=== PATIENT | female | born 1990 | race Caucasian/White ===

== ENCOUNTER 2018-01-10 16:49 | Emergency (ER) | payer SELFPAY ==
--- NOTE | 2018-01-10 17:30 | ER ---
Nurse's Notes [facility] Name: Jessica Hernandez Age: 27 yrs Sex: Female : 1990 Arrival Date: 01/10/2018 Time: 16:52 Bed 11 Private MD: Diagnosis: Acute sinusitis Presentation: 01/10 16:58 Presenting complaint: Patient states: she has had sore throat, low-grade fever (TMAX la1 100.2), cough and congestion for a week. Transition of care: patient was not received from another setting of care. Onset of symptoms was January 03, 2018. Care prior to arrival: None. 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 - Social history:: Smoking status: Patient uses tobacco products, smokes one-half pack cigarettes per day. Screenin:28 Abuse screen: Denies threats or abuse. Nutritional screening: No deficits noted. la1 Tuberculosis screening: No symptoms or risk factors identified. Fall Risk None identified. Assessment: 17:27 General: Appears in no apparent distress. Behavior is calm, cooperative. Pain: la1 Complains of pain in throat. Cardiovascular: Capillary refill < 3 seconds Patient's skin is warm and dry. Respiratory: Airway is patent Respiratory effort is even, unlabored, Respiratory pattern is regular, symmetrical, Breath sounds are clear bilaterally. GI: No signs and/or symptoms were reported involving the gastrointestinal system. : No signs and/or symptoms were reported regarding the genitourinary system. EENT: Throat is reddened. Vital Signs: 17:00 BP 136 / 78; Pulse 104; Resp 18; Temp 98.2; Pulse Ox 100% ; Weight 42.18 kg; Height 4 la1 ft. 7 in. (139.70 cm); Pain 7/10; 17:00 Body Mass Index 21.62 (42.18 kg, 139.70 cm) la1 ED Course: 16:52 Patient arrived in ED. tw3 16:54 Carrie Martinez FNP-C is [facility]. kb 16:54 Tyrone Bains MD is Attending Physician. kb 16:59 Triage completed. la1 17:00 Arm band placed on left wrist. la1 17:27 Nitish Carrera, RN is Primary Nurse. la1 17:28 Call light in reach. Side rails up X 1. la1 17:28 No provider procedures requiring assistance completed. Patient did not have IV access la1 during this emergency room visit. Administered Medications: No medications were administered Outcome: 17:29 Discharge ordered by MD. kb 17:38 Discharged to home ambulatory. la1 17:38 Condition: stable 17:38 Discharge instructions given to patient, Instructed on discharge instructions, follow up and referral plans. medication usage, Demonstrated understanding of instructions, follow-up care. 17:38 Patient left the ED. la1 Signatures: Carrie Martinez FNP-C FNP-Nitish Ness RN RN la1 Lily Montemayor tw3
--- NOTE | 2018-01-10 17:30 | EDPHYS ---
Physician Documentation [facility] Name: Jessica Hernandez Age: 27 yrs Sex: Female : 1990 Arrival Date: 01/10/2018 Time: 16:52 Bed 11 Private MD: ED Physician Tyrone Bains HPI: 01/10 17:06 This 27 yrs old Female presents to ER via Ambulatory with complaints of kb Fever, Sore Throat. 17:06 The patient or guardian reports cough, that is intermittent, described as mild, with no kb sputum, flu symptoms, low-grade fever, myalgias. Onset: The symptoms/episode began/occurred 1 week(s) ago. Severity of symptoms: At their worst the symptoms were moderate, in the emergency department the symptoms are unchanged. Modifying factors: The symptoms are alleviated by nothing, the symptoms are aggravated by nothing. Associated signs and symptoms: Pertinent positives: fever, sore throat, Pertinent negatives: chest pain, diarrhea, ear ache, nausea, rhinorrhea, vomiting. The patient has not experienced similar symptoms in the past. The patient has not recently seen a physician. Pt c/o sore throat, cough, congestion and low grade fever that started a week ago. . 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 - Social history:: Smoking status: Patient uses tobacco products, smokes one-half pack cigarettes per day. ROS: 17:06 Cardiovascular: Negative for chest pain, palpitations, and edema, Abdomen/GI: Negative kb for abdominal pain, nausea, vomiting, diarrhea, and constipation, Back: Negative for injury and pain, : Negative for injury, bleeding, discharge, and swelling, MS/Extremity: Negative for injury and deformity, Skin: Negative for injury, rash, and discoloration, Neuro: Negative for headache, weakness, numbness, tingling, and seizure. 17:06 Constitutional: Positive for fever, malaise, Negative for body aches, chills, fatigue, poor PO intake, weight loss. 17:06 ENT: Positive for rhinorrhea, sore throat. 17:06 Respiratory: Positive for cough, with no reported sputum, Negative for dyspnea on exertion, hemoptysis, orthopnea, pleurisy, shortness of breath, sputum production, wheezing. Exam: 17:06 Constitutional: This is a well developed, well nourished patient who is awake, alert, kb and in no acute distress. Head/Face: Normocephalic, atraumatic. Neck: Trachea midline, no thyromegaly or masses palpated, and no cervical lymphadenopathy. Supple, full range of motion without nuchal rigidity, or vertebral point tenderness. No Meningismus. Chest/axilla: Normal chest wall appearance and motion. Nontender with no deformity. No lesions are appreciated. Cardiovascular: Regular rate and rhythm with a normal S1 and S2. No gallops, murmurs, or rubs. Normal PMI, no JVD. No pulse deficits. Respiratory: Lungs have equal breath sounds bilaterally, clear to auscultation and percussion. No rales, rhonchi or wheezes noted. No increased work of breathing, no retractions or nasal flaring. Abdomen/GI: Soft, non-tender, with normal bowel sounds. No distension or tympany. No guarding or rebound. No evidence of tenderness throughout. Skin: Warm, dry with normal turgor. Normal color with no rashes, no lesions, and no evidence of cellulitis. MS/ Extremity: Pulses equal, no cyanosis. Neurovascular intact. Full, normal range of motion. Neuro: Awake and alert, GCS 15, oriented to person, place, time, and situation. Cranial nerves II-XII grossly intact. Motor strength 5/5 in all extremities. Sensory grossly intact. Cerebellar exam normal. Normal gait. 17:06 ENT: External ear(s): are unremarkable, Ear canal(s): are normal, TM's: fluid levels, bilaterally, Nose: is normal, Mouth: is normal, Posterior pharynx: Airway: normal, no evidence of obstruction, Uvula: normal, midline, swelling, is not appreciated, erythema, that is mild, that is moderate. Vital Signs: 17:00 BP 136 / 78; Pulse 104; Resp 18; Temp 98.2; Pulse Ox 100% ; Weight 42.18 kg; Height 4 la1 ft. 7 in. (139.70 cm); Pain 04/08; 17:00 Body Mass Index 21.62 (42.18 kg, 139.70 cm) la1 MDM: 17:05 Patient medically screened. kb 17:10 Data reviewed: vital signs, nurses notes. Data interpreted: Pulse oximetry: on room air kb is 100 %. Interpretation: normal. 17:17 Counseling: I had a detailed discussion with the patient and/or guardian regarding: the kb historical points, exam findings, and any diagnostic results supporting the discharge/admit diagnosis, lab results, the need for outpatient follow up, a family practitioner, to return to the emergency department if symptoms worsen or persist or if there are any questions or concerns that arise at home. 17:36 ED course: I explained OTC medications to use for sinusitis with pt including an kb antihistamine with decongestant and flonase to decreased inflammation and reduce congestion. Educated that this will help the fluid in the ears as well. Also educated on smoking cessation to help symptoms. Verbal understanding received. . 01/10 17:02 Order name: Flu; Complete Time: 17:25 la1 01/10 17:02 Order name: Strep; Complete Time: 17:25 la1 01/10 17:23 Order name: Throat Culture EDMS Administered Medications: No medications were administered Disposition: 01/10/18 17:29 Discharged to Home. Impression: Acute sinusitis. - Condition is Stable. - Discharge Instructions: Sinusitis, [id number]. - Medication Reconciliation Form, Thank You Letter, Antibiotic Education, Prescription Opioid Use, Work release form form. - Follow up: Emergency Department; When: As needed; Reason: Worsening of condition. Follow up: Private Physician; When: 2 - 3 days; Reason: Recheck today's complaints, Continuance of care, Re-evaluation by your physician. - Notes: Use Flonase and a 24 hour antihistamine with decongestant (Zyrtec D, Celeste D, or Claritin D) as directed. Addendum: 01/13/2018 07:46 Co-signature as Attending Physician, Tyrone Bains MD I agree with the assessment and w a plan of care. Signatures: Dispatcher [employer] EDMS Carrie Martinez, [facility] [employer]-Nitish Ness RN RN la1 Tyrone Bains MD MD wa
== END 2018-01-10 17:38 | disposition home or self-care (01) ==
LOC: ER 16:49
DX: J01.90 Acute sinusitis, unspecified (principal); Z91.040 Latex allergy status
CPT/HCPCS: 87070; 87081; 87804; 99281

== ENCOUNTER 2019-08-08 16:39 | Emergency (ER) | payer SELFPAY ==
[2019-08-08] MEDS ORDERED: ONDANSETRON 4 MG/2 ML VIAL ONE (17:23)
[2019-08-08] MEDS ORDERED: MORPHINE 4 MG/ML SYR ONE ×2 (17:23→21:35)
[2019-08-08] MEDS ORDERED: NA CHLORIDE 0.9% 1,000 ML ONE (17:23)
[2019-08-08 17:30] LABS: Absolute Lymphocytes (CBC) 1.5 K/uL (0.7-4.9); Basophils % 0.2 % (0-1.3); Hematocrit 42.8 % (36.0-45.0); Lymphocytes % 21.2 % (15.3-44.8); MPV 9.5 fL (7.6-11.3); RBC Red Blood Cell Count 4.55 M/uL (3.86-4.86)
[2019-08-08 17:47] LABS: ALT/SGPT 13 U/L (12-78); AST/SGOT 16 U/L (15-37); Albumin 4.4 g/dL (3.4-5.0); Alkaline Phosphatase 76 U/L (45-117); BUN Blood Urea Nitrogen 8 mg/dL (7-18); Bicarbonate 25 mmol/L (21-32); Bilirubin Direct 0.2 mg/dL (0-0.2); Bilirubin Total 0.9 mg/dL (0.2-1.0); Glucose Level 88 mg/dL (74-106); Lipase 130 U/L (73-393); Potassium 3.7 mmol/L (3.5-5.1); Protein, Total 8.3 g/dL (6.4-8.2); Sodium Level 140 mmol/L (136-145)
--- NOTE | 2019-08-08 18:23 | RAD REPORT ---
EXAM DESCRIPTION: CT - Abdomen Pelvis W Contrast - 08/08/2019 6:13 pm CLINICAL HISTORY: ABD PAIN, vaginal bleeding, prior appendectomy COMPARISON: None. TECHNIQUE: Biphasic, helical CT imaging of the abdomen and pelvis was performed following 100 ml non -ionic IV contrast. No oral contrast given. All CT scans are performed using dose optimization technique as appropriate and may include automated exposure control or mA/KV adjustment according to patient size. FINDINGS: No suspicious findings in the lung bases. The liver, spleen, and pancreas show no suspicious findings. Gallbladder and biliary tree are also wi thout suspicious finding. Symmetric renal function is seen with no hydronephrosis or suspicious renal mass. No pyelonephritis o r acute parenchymal process. No bladder abnormalities. No adrenal abnormalities. No dilated bowel loops or bowel wall thickening. No free air, free fluid or inflammatory stranding. No hernia, mass or bulky lymphadenopathy. No uterine abnormality seen. Small follicles are seen in the right ovary. Normal size left ovary is s een. Patient appears to have a dilated left fallopian tube. No wall thickening or edema. No cyst rupt ure or hemorrhage. No suspicious bony findings. IMPRESSION: Suspected left-sided hydrosalpinx without pyosalpinx findings. No suspicious ovarian fin ding. No other significant or suspicious finding.
[2019-08-08] MEDS ORDERED: CEFTRIAXONE/SWI 1gm 1 GM/10 ML SYR ONE (20:18)
[2019-08-08 20:29] LABS: Urine Blood 2+ (NEG); Urine Glucose NEGATIVE (NEG); Urine Protein NEGATIVE (NEG)
[2019-08-08] MEDS ORDERED: METRONIDAZOLE 500mg IVPB 500 MG/100 ML BAG IV ONE (21:35)
[2019-08-08] MEDS ORDERED: DOXYCYCLINE 100 MG CAP PO ONE (21:35)
--- NOTE | 2019-08-08 21:37 | EDPHYS ---
Physician Documentation [facility] Name: Jessica Hernandez Age: 29 yrs Sex: Female : 1990 Arrival Date: 08/08/2019 Time: 16:42 Bed 20 Private MD: ED Physician Sathya Donovan HPI: 08/08 17:19 This 29 yrs old Female presents to ER via Ambulatory with complaints of pm1 Abdominal Pain. 17:19 The patient presents with abdominal pain that is diffuse. Onset: The symptoms/episode pm1 began/occurred 3 month(s) ago, and became worse. The symptoms do not radiate. Associated signs and symptoms: Pertinent positives: nausea, Pertinent negatives: chest pain, diarrhea, dysuria, fever, shortness of breath, vomiting. The symptoms are described as achy. Modifying factors: The symptoms are alleviated by nothing, the symptoms are aggravated by nothing. Severity of pain: in the emergency department the pain is actually worse. yesterday had u/s of gallbladder and pelvis. Patient saw PCP and had negative STD screen 2.5 weeks ago. Patient reports abnormal uterine bleeding for the past 3 months. Denies vaginal discharge or dysuria. 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 - Social history:: Smoking status: Patient uses tobacco products, smokes one pack cigarettes per day. - Ebola Screening: : No symptoms or risks identified at this time. ROS: 17:19 Constitutional: Negative for fever, chills, and weight loss, Eyes: Negative for injury, pm1 pain, redness, and discharge, ENT: Negative for injury, pain, and discharge, Neck: Negative for injury, pain, and swelling, Cardiovascular: Negative for chest pain, palpitations, and edema, Respiratory: Negative for shortness of breath, cough, wheezing, and pleuritic chest pain. 17:19 Back: Negative for injury and pain. 17:19 MS/Extremity: Negative for injury and deformity, Skin: Negative for injury, rash, and discoloration, Neuro: Negative for headache, weakness, numbness, tingling, and seizure. 17:19 Abdomen/GI: Positive for abdominal pain, nausea, Negative for vomiting, diarrhea, constipation. 17:19 : Positive for vaginal bleeding, Negative for burning with urination, vaginal discharge, vaginal itching. Exam: 17:19 Constitutional: This is a well developed, well nourished patient who is awake, alert, pm1 and in no acute distress. Head/Face: Normocephalic, atraumatic. Neck: Trachea midline, no thyromegaly or masses palpated, and no cervical lymphadenopathy. Supple, full range of motion without nuchal rigidity, or vertebral point tenderness. No Meningismus. Chest/axilla: Normal chest wall appearance and motion. Nontender with no deformity. No lesions are appreciated. Cardiovascular: Regular rate and rhythm with a normal S1 and S2. No gallops, murmurs, or rubs. Normal PMI, no JVD. No pulse deficits. Respiratory: Lungs have equal breath sounds bilaterally, clear to auscultation and percussion. No rales, rhonchi or wheezes noted. No increased work of breathing, no retractions or nasal flaring. 17:19 Back: No spinal tenderness. No costovertebral tenderness. Full range of motion. Skin: Warm, dry with normal turgor. Normal color with no rashes, no lesions, and no evidence of cellulitis. 17:19 MS/ Extremity: Pulses equal, no cyanosis. Neurovascular intact. Full, normal range of motion. 17:19 Abdomen/GI: Inspection: abdomen appears normal, Bowel sounds: normal, Palpation: soft, mild abdominal tenderness, in the right lower quadrant and left lower quadrant, mass, is not appreciated, rebound tenderness, is not appreciated. 17:19 Neuro: Orientation: is normal, Motor: is normal, moves all fours. 20:54 : Pelvic Exam: External exam: is normal, Speculum exam: no bleeding is noted, no pm1 cervicitis, bimanual exam reveals no cervical motion tenderness, no adnexal tenderness on right, left adnexal tenderness, discharge, yellow, Felicia GATES. Sexual behavior: the patient is sexually active, 2 months ago. Vital Signs: 16:47 BP 134 / 70; Pulse 76; Resp 16; Temp 98.4; Pulse Ox 100% on R/A; Weight 42.18 kg; la1 Height 4 ft. 7 in. (139.70 cm); 17:54 BP 125 / 66; Pulse 93; Resp 18; Pulse Ox 99% on R/A; Pain 2/10; em 19:30 BP 116 / 66; Pulse 70; Resp 16; Pulse Ox 100% on R/A; Pain 8/10; lp1 20:30 BP 109 / 66; Pulse 70; Resp 16; Pulse Ox 100% on R/A; lp1 21:30 BP 117 / 64; Pulse 66; Resp 16; Pulse Ox 100% on R/A; Pain 7/10; lp1 22:20 BP 123 / 71; Pulse 64; Resp 16; Pulse Ox 100% on R/A; lp1 16:47 Body Mass Index 21.62 (42.18 kg, 139.70 cm) la1 MDM: 16:51 Patient medically screened. pm1 20:46 Data reviewed: vital signs. Data interpreted: Pulse oximetry: on room air is 99 %. pm1 Interpretation: normal. Counseling: I had a detailed discussion with the patient and/or guardian regarding: the historical points, exam findings, and any diagnostic results supporting the discharge/admit diagnosis, lab results, radiology results. 21:05 Physician consultation: Aric Ellsworth MD regarding consult, patient's condition, If pm1 patient is afebrile, not vomiting, and does not have an acute abdomen, patient can be discharged to go home with doxycycline after getting Rocephin in the ER. 08/08 17:04 Order name: Basic Metabolic Panel pm1 08/08 17:04 Order name: CBC with Diff pm1 08/08 17:04 Order name: Creatinine for Radiology pm1 08/08 17:04 Order name: Hepatic Function pm1 08/08 17:04 Order name: Lipase pm1 08/08 17:09 Order name: Urine Dipstick--Ancillary (enter results) eb 08/08 17:09 Order name: Urine --Ancillary (enter results) eb 08/08 17:31 Order name: CBC with Automated Diff; Complete Time: 18:26 EDMS 08/08 17:46 Order name: Creatinine (Radiology Only); Complete Time: 18:26 EDMS 08/08 17:47 Order name: Basic Metabolic Panel; Complete Time: 18:26 EDMS 08/08 17:47 Order name: Liver (Hepatic) Function; Complete Time: 18:26 EDMS 08/08 17:47 Order name: Lipase; Complete Time: 18:26 EDMS 08/08 20:09 Order name: GC (GONORR/CHLAMYDIA) Probe pm1 08/08 20:09 Order name: Wet Prep pm1 08/08 17:04 Order name: IV Saline Lock; Complete Time: 17:30 pm1 08/08 17:04 Order name: Labs collected and sent; Complete Time: 17:30 pm1 08/08 17:04 Order name: Urine Dipstick-Ancillary (obtain specimen); Complete Time: 17:06 pm1 08/08 17:09 Order name: CT Abd/Pelvis - IV Contrast Only pm1 08/08 19:12 Order name: CT; Complete Time: 19:38 EDMS 08/08 20:29 Order name: Urine --Ancillary; Complete Time: 20:29 EDMS 08/08 20:29 Order name: Urine Dipstick-Ancillary; Complete Time: 20:29 EDMS 08/08 21:06 Order name: Wet Prep; Complete Time: 21:06 EDMS 08/08 17:04 Order name: Urine Test (obtain specimen); Complete Time: 17:06 pm1 08/08 17:09 Order name: NPO; Complete Time: 17:29 pm1 08/08 20:09 Order name: Pelvic Exam Setup; Complete Time: 20:55 pm1 Administered Medications: 17:25 Drug: NS 0.9% 1000 ml Route: IV; Rate: 1000 ml; Site: right antecubital; iw 19:21 Follow up: IV Status: Completed infusion; IV Intake: 1000ml lp1 17:25 Drug: Zofran 4 mg Route: IVP; Site: right antecubital; iw 18:00 Follow up: Response: No adverse reaction em 17:27 Drug: morphine 4 mg Route: IVP; Site: right antecubital; iw 18:00 Follow up: Response: No adverse reaction; Pain is decreased em 20:45 Drug: Rocephin 1 grams Route: IV; Rate: calculated rate; Site: right antecubital; lp1 21:00 Follow up: IV Status: Completed infusion; IV Intake: 10ml lp1 21:42 Drug: Doxycycline 100 mg Route: PO; lp1 22:19 Follow up: Response: No adverse reaction lp1 21:42 Drug: Flagyl 500 mg Volume: 100 ml; Route: IVPB; Rate: 200 ml/hr; Infused Over: 30 lp1 mins; Site: right antecubital; 22:18 Follow up: IV Status: Completed infusion; IV Intake: 100ml lp1 21:42 Drug: morphine 4 mg {Note: RASS 0.} Route: IVP; Site: right antecubital; lp1 22:19 Follow up: Response: Pain is decreased; RASS: Alert and Calm (0) lp1 Disposition: 08/09 13:27 Co-signature as Attending Physician, Sathya Donovan MD I agree with the assessment and [facility] plan of care. Disposition: 08/08/19 21:36 Discharged to Home. Impression: Salpingitis, unspecified. - Condition is Stable. - Discharge Instructions: Pelvic Inflammatory Disease. - Prescriptions for Flagyl 500 mg Oral Tablet - take 1 tablet by ORAL route every 12 hours for 14 days; 28 tablet. Tylenol- Codeine #3 300-30 mg Oral Tablet - take 2 tablets by ORAL route every 6 hours As needed; 20 tablet. Zofran 4 mg Oral Tablet - take 1 tablet by ORAL route every 8 hours As needed; 20 tablet. Doxycycline Hyclate 100 mg Oral Tablet - take 1 tablet by ORAL route every 12 hours for 14 days; 28 tablet. - Medication Reconciliation Form, Thank You Letter, Antibiotic Education, Prescription Opioid Use form. - Follow up: Emergency Department; When: As needed; Reason: Worsening of condition. Follow up: Aric Ellsworth MD; When: 2 - 3 days; Reason: Recheck today's complaints, Continuance of care, Re-evaluation by your physician. - Problem is new. - Symptoms have improved. Signatures: Dispatcher [employer] Sathya Jeronimo MD MD cha Williams, Irene, RN RN iw Pena, Laura, RN RN lp1 Nitish Carrera RN RN la1 Saroj Manrique, [facility] NURSE STAFF [facility] NURSE STAFF pm1 Alfonso CastañedaN em Corrections: (The following items were deleted from the chart) 08/08 22:22 21:36 08/08/2019 21:36 Discharged to Home. Impression: Salpingitis, unspecified. lp1 Condition is Stable. Forms are Medication Reconciliation Form, Thank You Letter, Antibiotic Education, Prescription Opioid Use. Follow up: Emergency Department; When: As needed; Reason: Worsening of condition. Follow up: Aric Ellsworth; When: 2 - 3 days; Reason: Recheck today's complaints, Continuance of care, Re-evaluation by your physician. Problem is new. Symptoms have improved. pm1
--- NOTE | 2019-08-08 21:37 | ER ---
Nurse's Notes [facility] Name: Jessica Hernandez Age: 29 yrs Sex: Female : 1990 Arrival Date: 08/08/2019 Time: 16:42 Bed 20 Private MD: Diagnosis: Salpingitis, unspecified Presentation: 08/08 16:46 Presenting complaint: Patient states: I have been having vaginal bleeding since la1 July and having persistent pain. Transition of care: patient was not received from another setting of care. Onset of symptoms was August 08, 2019. Risk Assessment: Do you want to hurt yourself or someone else? Patient reports no desire to harm self or others. Initial Sepsis Screen: Does the patient meet any 2 criteria? No. Patient's initial sepsis screen is negative. Does the patient have a suspected source of infection? No. Patient's initial sepsis screen is negative. Care prior to arrival: None. 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 - Social history:: Smoking status: Patient uses tobacco products, smokes one pack cigarettes per day. - Ebola Screening: : No symptoms or risks identified at this time. Screenin:00 Abuse screen: Denies threats or abuse. Nutritional screening: No deficits noted. em Tuberculosis screening: No symptoms or risk factors identified. Fall Risk None identified. Assessment: 17:00 General: Appears in no apparent distress. uncomfortable, Behavior is calm, cooperative, em Denies fever. Pain: Complains of pain in right upper quadrant Pain currently is 8 out of 10 on a pain scale. Pain began 1 day ago. Neuro: Level of Consciousness is awake, alert, obeys commands, Oriented to person, place, time, situation, Appropriate for age. Cardiovascular: Capillary refill < 3 seconds Patient's skin is warm and dry. Respiratory: Airway is patent Respiratory effort is even, unlabored, Respiratory pattern is regular, symmetrical. GI: Abdomen is flat, Bowel sounds present X 4 quads. Abd is soft X 4 quads Abdomen is tender to palpation in right upper quadrant Patient currently denies nausea, vomiting. : Reports vaginal bleeding that is light flow, since Jul.31 Denies burning with urination, discharge. Derm: Skin is intact, is healthy with good turgor, Skin is pink, warm \T\ dry. Musculoskeletal: Capillary refill < 3 seconds, Range of motion: intact in all extremities. 17:52 Reassessment: Patient appears in no apparent distress at this time. Patient and/or em family updated on plan of care and expected duration. Pain level reassessed. Patient is alert, oriented x 3, equal unlabored respirations, skin warm/dry/pink. rates pain 2/10 Patient states feeling better. 18:08 Reassessment: wheeled to CT via wheelchair. em 19:20 Reassessment: Patient appears in no apparent distress at this time. Patient states lp1 abdominal pain returning at this time; Provider notified; Aware of waiting for CT results. 20:30 Reassessment: Patient prepped for pelvic exam. lp1 21:15 Reassessment: Patient unable to give urine sample at this time; States pain to abdomen lp1 returning at this time, Provider notified. 21:46 Reassessment: Patient aware of discharge after IV infusion completed. lp1 Vital Signs: 16:47 BP 134 / 70; Pulse 76; Resp 16; Temp 98.4; Pulse Ox 100% on R/A; Weight 42.18 kg; la1 Height 4 ft. 7 in. (139.70 cm); 17:54 BP 125 / 66; Pulse 93; Resp 18; Pulse Ox 99% on R/A; Pain 2/10; em 19:30 BP 116 / 66; Pulse 70; Resp 16; Pulse Ox 100% on R/A; Pain 8/10; lp1 20:30 BP 109 / 66; Pulse 70; Resp 16; Pulse Ox 100% on R/A; lp1 21:30 BP 117 / 64; Pulse 66; Resp 16; Pulse Ox 100% on R/A; Pain 7/10; lp1 22:20 BP 123 / 71; Pulse 64; Resp 16; Pulse Ox 100% on R/A; lp1 16:47 Body Mass Index 21.62 (42.18 kg, 139.70 cm) la1 ED Course: 16:42 Patient arrived in ED. 16:46 Triage completed. la1 16:47 Arm band placed on right wrist. la1 16:51 [facility]. pm1 16:51 Sathya Donovan MD is Attending Physician. pm1 16:51 Alfonso Castañeda LVN is Primary Nurse. em 17:00 Patient has correct armband on for positive identification. Placed in gown. Bed in low em position. Call light in reach. Adult w/ patient. Pulse ox on. NIBP on. 17:17 Radiology exam delayed due to lab results not completed at this time. test vm2 not completed at this time. 18:13 CT completed. Patient tolerated procedure well. Patient moved back from CT. mw3 19:20 No provider procedures requiring assistance completed. lp1 20:40 Assist provider with pelvic exam: Set up pelvic tray. Performed by Saroj Manrique NP lp1 Specimens sent to lab. 21:33 Aric Ellsworth MD is Referral Physician. pm1 22:20 IV discontinued, No redness/swelling at site. Pressure dressing applied. lp1 Administered Medications: 17:25 Drug: NS 0.9% 1000 ml Route: IV; Rate: 1000 ml; Site: right antecubital; iw 19:21 Follow up: IV Status: Completed infusion; IV Intake: 1000ml lp1 17:25 Drug: Zofran 4 mg Route: IVP; Site: right antecubital; iw 18:00 Follow up: Response: No adverse reaction em 17:27 Drug: morphine 4 mg Route: IVP; Site: right antecubital; iw 18:00 Follow up: Response: No adverse reaction; Pain is decreased em 20:45 Drug: Rocephin 1 grams Route: IV; Rate: calculated rate; Site: right antecubital; lp1 21:00 Follow up: IV Status: Completed infusion; IV Intake: 10ml lp1 21:42 Drug: Doxycycline 100 mg Route: PO; lp1 22:19 Follow up: Response: No adverse reaction lp1 21:42 Drug: Flagyl 500 mg Volume: 100 ml; Route: IVPB; Rate: 200 ml/hr; Infused Over: 30 lp1 mins; Site: right antecubital; 22:18 Follow up: IV Status: Completed infusion; IV Intake: 100ml lp1 21:42 Drug: morphine 4 mg {Note: RASS 0.} Route: IVP; Site: right antecubital; lp1 22:19 Follow up: Response: Pain is decreased; RASS: Alert and Calm (0) lp1 Intake: 19:21 IV: 1000ml; Total: 1000ml. lp1 21:00 IV: 10ml; Total: 1010ml. lp1 22:18 IV: 100ml; Total: 1110ml. lp1 Outcome: 21:36 Discharge ordered by MD. pm1 22:20 Discharged to home ambulatory, with family. lp1 22:20 Condition: good 22:20 Discharge instructions given to patient, Instructed on discharge instructions, follow up and referral plans. medication usage, Demonstrated understanding of instructions, follow-up care, medications, Prescriptions given X 4. 22:22 Patient left the ED. lp1 Signatures: Fior Souza mr Castañeda, Alfonso, TOP FORMER TOP FORMER em Laxmi Tapia RN RN iw Felicia Chaudhry RN RN lp1 Nitish Carrera RN RN la1 Saroj Manrique, TANKAGE GRINDER TANKAGE GRINDER pm1 Shivani Stearns 2 Jacquelyn Tam mw3 Corrections: (The following items were deleted from the chart) 21:49 21:15 Reassessment: Patient unable to give urine sample at this time; lp1 lp1
[2019-08-08 23:17] VITALS: TEMP 98.4
[2019-08-08 23:20] VITALS: O2SAT 100
[2019-08-08 23:24] VITALS: BP 123/71
[2019-08-12 11:53] LABS: C.trachomatis RNA,TMA Not Detected (Not Detected)
== END 2019-08-08 22:22 | disposition home or self-care (01) ==
LOC: ER 16:39
DX: N70.91 Salpingitis, unspecified (principal); F17.210 Nicotine dependence, cigarettes, uncomplicated; Z91.040 Latex allergy status; Z91.048 Other nonmedicinal substance allergy status
CPT/HCPCS: 36415; 74177; 80048; 80076; 81003; 81025; 83690; 85025; 87210; 87490; 87590; 96361; 96365; 96375; 99284; J0696; J2405; J7030; Q9967

== ENCOUNTER 2023-02-25 21:21 | Emergency (ER) | payer OTHER, SELFPAY ==
--- OUTSIDE RECORDS SUMMARY | 2023-02-25 21:37 | XMS REPORT | Continuity of Care Document ---
:1990 Author Organization [facility] t Address [address] [place] [address] Care Team Providers Name Role Phone Asked, No Pcp Primary Care Physician Unavailable Donnie Amanda Attending Clinician Unavailable Xiao DUTTA, Kian Canseco Attending Clinician [phone] Charo Camp DO Attending Clinician Physician, No Primary or Family Admitting Clinician Unavaila CHARO Pfeiffer Admitting Clinician Unavailable Payers Payer Name Policy Type Policy Number Effective Date Expiration Date S ource Problems Condition Condition Condition Status Onset Resolution Last Treating Co mments Source Name Details Category Date Date Treatment Clinician Date Left Left Disease Active Methodi tubo-ovari tubo-ovari 06-28 an abscess an abscess 00:00: Ho spita 00 l Allergies, Adverse Reactions, Alerts Allergy Allergy Status Severity Reaction(s) Onset Inactive Treating Comm ents Source Name Type Date Date Clinician latex DA Active SV SWELL UP [facility] 06-13 Clear 00:00: Dove 00 [facility] latex DA Active SV [facility] 06-13 Clear 00:00: Dove 00 [facility] Latex Propensi Active Swelling Method i ty to 06-29 st adverse 00:00: Hospita reaction 00 l s to drug latex DA Active SV SWELL UP 2012-09 [facility] 2-14 Clear 00:00: Dove 00 [facility] latex DA Active SV 2012-09 [facility] 2-14 Clear 00:00: Dove 00 [facility] Social History Social Habit Start Date Stop Date Quantity Comments Source History of tobacco Cigarette Smoker [facility] History of Social 2020-06-30 2020-06-[address] function 00:00:00 00:00:00 Hospital Tobacco use and 2020-06-28 2020-06-28 Never used [facility] exposure 00:00:00 00:00:00 Hospital Alcohol intake 2020-06-28 2020-06-28 Current drinker [facility] 00:00:00 00:00:00 of alcohol Hospital (finding) Alcohol Comment 2019-11-02 2019-11-02 occasional [facility] 00:00:00 00:00:00 Hospital Cigarettes smoked 2019-11-02 2019-11-[address] current (pack per 00:00:00 00:00:00 Hospita l day) - Reported Sex Ass[birth year] At [birth year] [facility] 00:00:00 00:00:00 [facility] Smoking Status Start Date Stop Date Source Current every day smoker 2020-06-28 00:00:00 [facility] Medications Ordered Filled Start Stop Current Ordering Indication Dosage Frequency Signature Comments Components Source Medication Medication Date Date Medication? Clinician (SIG) Name Name doxycycline 2019-09 No 100mg Q.5D Take 1 Me thodi (VIBRAMYCIN 0-01 10-[address] ) 100 MG 00:00: 04:59 (100 mg Hospi ta capsule 00 :00 total) by l mouth 2 (two) times a day for 14 days. metroNIDAZO 2019-09 No 500mg Q.5D Take 1 Me thodi LE (FLAGYL) 0-01 10-[address] 500 MG 00:00: 04:59 (500 mg Hospita tablet 00 :00 total) by l mouth 2 (two) times a day for 14 days. Vital Signs Vital Name Observation Time Observation Value Comments Source Systolic blood 2020-06-30 12:14:15 103 mm[Hg] [facility] pressure Diastolic blood 2020-06-30 12:14:15 57 mm[Hg] [facility] pressure Heart rate 2020-06-30 12:14:15 65 /min [facility] Respiratory rate 2020-06-30 12:14:15 17 /min [facility] Oxygen saturation in 2020-06-30 12:14:15 98 /min Arterial blood by Pulse oximetry Body temperature 2020-06-30 09:01:03 35.78 Manju [facility] Body height 2020-06-29 02:52:00 139.7 cm [facility] Body weight 2020-06-29 02:52:00 43.772 kg [facility] BMI 2020-06-29 02:52:00 22.43 kg/m2 [facility] Procedures Procedure Date / Time Performing Clinician Source Performed HC COMPLETE BLD COUNT 2020-06-30 09:45:00 Alecia Trevizo W/AUTO DIFF Kaisee LACTIC ACID LEVEL 2020-06-29 21:28:00 [facility] CONSULT TO SEPSIS 2020-06-29 17:16:21 [facility] RESPONSE TEAM [place] LACTIC ACID LEVEL 2020-06-29 17:00:00 [facility] BASIC METABOLIC PANEL 2020-06-29 12:58:00 [facility] HC COMPLETE BLD COUNT 2020-06-29 12:58:00 [facility] W/AUTO DIFF ESTIMATED GFR 2020-06-29 12:58:00 [facility] LACTIC ACID LEVEL, SEPSIS 2020-06-29 01:23:00 [facility] - NOW AND REPEAT 2X EVERY Ajith 3 HOURS COVID-19 QUALITATIVE 2020-06-28 23:43:00 [facility] RT-PCR LACTIC ACID LEVEL, SEPSIS 2020-06-28 22:55:00 [facility] NOW AND REPEAT 2X EVERY Ajith 3 HOURS US PELVIC TRANSABDOMINAL 2020-06-28 21:15:28 [facility] US PELVIC TRANSVAGINAL 2020-06-28 21:15:28 [facility] Ajith BLOOD CULTURE, AEROBIC & 2020-06-28 20:15:00 [facility] ANAEROBIC Ajith LACTIC ACID LEVEL, SEPSIS 2020-06-28 20:15:00 [facility] - NOW AND REPEAT 2X EVERY Ajith 3 HOURS BLOOD CULTURE, AEROBIC & 2020-06-28 19:50:00 [facility] ANAEROBIC Ajith CT ABDOMEN PELVIS W 2020-06-28 19:09:27 [facility] CONTRAST Ajith URINE CULTURE 2020-06-28 18:28:00 [facility] Ajith URINALYSIS SCREEN AND 2020-06-28 17:21:00 [facility] MICROSCOPY, WITH REFLEX Ajith TO CULTURE HCG QUALITATIVE, URINE 2020-06-28 17:21:00 [facility] SCREEN Ajith HC COMPLETE BLD COUNT 2020-06-28 17:18:00 [facility] W/AUTO DIFF Ajith COMPREHENSIVE METABOLIC 2020-06-28 17:18:00 [facility] PANEL Ajith LIPASE LEVEL 2020-06-28 17:18:00 [facility] Ajith ESTIMATED GFR 2020-06-28 17:18:00 [facility] Ajith Plan of Care Planned Activity Planned Date Details Comments Source Future Scheduled 2023-01-04 COVID-19 VACCINE (#1) [facility] Test 10:36:52 [code = COVID-19 VACCINE (#1)] Future Scheduled 2023-01-04 Pneumococcal Vaccine: [facility] Test 10:36:52 Pediatrics (0 to 5 Years) and At-Risk Patients (6 to 64 Years) (1 - PCV) [code = Pneumococcal Vaccine: Pediatrics (0 to 5 Years) and At-Risk Patients (6 to 64 Years) (1 - PCV)] Future Scheduled 2023-01-[address] [facility] Test 10:36:52 (procedure) [code = 025924588] Future Scheduled 2023-01-04 Screening for Test 10:36:52 malignant neoplasm of cervix (procedure) [code = 198257455] Future Scheduled 2023-01-04 INFLUENZA VACCINE [facility] Test 10:36:52 [code = INFLUENZA VACCINE] Future Scheduled COVID-19 VACCINE (1) [facility] Test [code = COVID-19 VACCINE (1)] Future Scheduled Hepatitis C screening [facility] Test (procedure) [code = 569036300] Future Scheduled Screening for [facility] Test malignant neoplasm of cervix (procedure) [code = 992433926] Future Scheduled INFLUENZA VACCINE [facility] Test [code = INFLUENZA VACCINE] Encounters Start End Encounter Admission Attending Care Care Encounter Source Date/Time Date/Time Type Type Clinicians Facility Department ID 2021-06-13 2021-06-13 Emergency EM Vasiliy, GILDA AERS [id number] [facility] 21:39:00 23:20:00 Donnie Velazquez [facility] 2020-06-28 2020-06-30 Emergency Kian Hagen [id number] Methodi 11:43:00 13:24:00 Charo Camp [id number] [id number] Hospit [id number] l .8 Results Test Description Test Time Test Comments Results Result [facility] e Comments - XR ANKLE 3 + V 2021-06-13 [facility] 1990 Sex: F FAX: Donnie Amanda MD [place]: [place] St: REG Name: DONOVAN GARRISON FSED : 1990 Age/S: 31/F [address] [facility] Unit #: [id number] Loc: [place], [place] [address] Phys: Donnie Amanda MD Acct: [id number] Dis Date: Status: REG ER PHONE #: Exam Date: 06/13/2021 1821 FAX #: Reason: injury EXAMS: CPT CODE: [id number] XR ANKLE 3 + [place] [address] PROCEDURE INFORMATION: Exam: XR Left Ankle Exam date and time: 06/13/2021 9:51 PM Age: 31 years old Clinical indication: Pain; Ankle; Bilateral; Additional info: Injury TECHNIQUE: Imaging protocol: XR Left ankle. Views: 3 or more views. AP Oblique Lateral COMPARISON: No relevant prior studies available. FINDINGS: Bones/joints: There is normal alignment without fractures or dislocations. The tibiotalar joint and talar dome are unremarkable. The subtalar joint is unremarkable. The mortise is normal. The distal tibia-fibular alignment is unremarkable. There is no ankle joint effusion. Soft tissues: There is no soft tissue swelling. There are no radiopaque foreign bodies. Notes: If there is further concern, recommend follow-up radiographs or MRI for complete assessment. IMPRESSION: No fracture or dislocation at 2243 Reported and signed by: Chicho Dawn M.D. CC: Donnie Amanda MD Technologist: RT Pavel(R)(CT) Trnscrd Date/Time/By: 06/13/2021 (2242) : By: [email or web address] Orig Print D/T: S: 06/13/2021 (2242) PAGE 1 Signed Report - XR FOOT 3 + V LT 2021-06-13 00:00:00 [facility] 1990 Sex: F FAX: Donnie Amanda MD [place]: [place] St: REG Name: DONOVAN GARRSIONin FSED : 1990 Age/S: 31/F [address] [facility] Unit #: [id number] Loc: [place] [address] Phys: Donnie Amanda MD Acct: [id number] Dis Date: Status: REG ER PHONE #: Exam Date: 06/13/2021 0113 FAX #: Reason: injury EXAMS: CPT CODE: [id number] XR FOOT 3 + [place] [address] PROCEDURE INFORMATION: Exam: XR Left Foot Complete; Alignment Exam date and time: 06/13/2021 9:51 PM Age: 31 years old Clinical indication: Pain; Foot; Bilateral; Additional info: Injury TECHNIQUE: Imaging protocol: XR Left foot. Views: 3 or more views. AP Oblique Lateral COMPARISON: No relevant prior studies available. FINDINGS: Bones/joints: No acute fracture or malalignment. Joint spaces are preserved. Soft tissues: Normal. IMPRESSION: No fracture or dislocation at 2244 Reported and signed by: Chicho Dawn M.D. CC: Donnie Amanda MD Technologist: RT Pavel(Pelon)(CT) Trnscrd Date/Time/By: 06/13/2021 (461) : By: [email or web address] Orig Print D/T: S: 06/13/2021 (6697) PAGE 1 Signed Report Urine culture 2020-06-30 01:38:47 Test Item Value Reference Range Interpretation Comme nts Urine culture isolate Mixed alondra 10-4 Sp ecimen InformationSpecimen (test code = [id number]) col/cc Source : UrineSpecimen Site: Clean catch [facility] [id number] 17:16:21Francis Weston NP 06/29/2020 12:30 PM Sepsis Clinical AssessmentPerformed by: Francis Weston NPAuthorized by: Francis Weston NP Sepsis Clinical Assessment General Assessment InformationCurrent sepsis score: 0 On comfort care?: No If score does not worsen, snooze alerts until: 06/29/2020 12:16 CDT SIRS Criteria WBC > 12 K/mcL due to acute condition Organ Dysfunction SBP < 90 mmHg due to acute condition Sepsis AssessmentClinical suspicion of infection? YesTime of suspicion of infection: 06/29/2020 12:16 PMClinical suspicion of sepsis?: YesSepsis staging: Severe sepsisSevere Sepsis T0: 06/29/2020 12:16 PM Sepsis protocol started? YesWhere did the protocol start?: Inpatient StartedClinical disposition: Remain in room Suspected Type/Source of InfectionSuspected Type ofInfection: BacterialSuspected Source of Infection: UTI and Reproductive tract Other Acute DiagnosesRespiratory distress: 1216. Focus ExamSepsis focus exam performed at 06/29/2020 12:16 PM Cardiopulmonary ExamHeart: Regular rate & rhythmLeft Lung: ClearRight Lung: Clear Capillary RefillCapillary refill rate: Brisk, < 3 s Peripheral PulsesLeft dorsalis pedis: NormalRight dorsalis pedis: NormalLeft posterial tibial: NormalRight posterial tibial: NormalLeft radial: NormalRight radial: Normal Skin ExamSkin exam: Skin color normal Sepsis Related VitalsHeart rate: 81Temperature: 98.1 FRespiratory rate: 17Blood pressure: 88/53Altered mental status: WBC (k/uL) Date Value 06/29/2020 12.9 (H) 06/28/2020 17.1 (H) Weight-Based Fluid Bolus CalculationThe recommended weight-based bolus volume: 1,314 mL (dosing weight)Please refer to the MAR for actual med/fluid administrations.US Pelvic [id number] 21:31:58EXAMINATION: US PELVIC TRANSVAGINAL CLINICAL HISTORY: fever COMPARISON: 06/28/2020. TECHNIQUE:Transabdominal and endovaginal sonographic images of the pelvis were obtained. Grayscale, color Doppler, andspectral waveform analysis of the ovarian vessels was performed. FINDINGS: The uterus is unremarkable. No uterine mass is seen. The uterus measures 7.1 x 4.4 x 3.7 cm. The endometrial stripe is unremarkable and measures 0.36 cm. A tubular complex cystic mass is seen within the left adnexal measuring at least 4 x 2.8 cm. This corresponds to the fibular wall enhancing structure seen on the prior CT exam. There is also a posterior 1.7 cm left ovarian cyst cyst with internal echo is seen. Findings are again worrisome for tubo-ovarian abscess/pyosalpinx. The ovaries otherwise unremarkable. The right ovary measures 2.46 cm x 2.26 cm x 2.16 cm . Normal Doppler flow was present. The left ovary measures 8.83 cm x 3.82 cm x 4.00 cm. Normal Doppler flow was present. There is no fluid in the pelvic cul-de-sac. Renal survey demonstrates no evidence of hydronephrosis. Impression: Findings again worrisome for left adnexal tubo- ovarian abscess/pyosalpinx. Recommend PREPARATORY TECHNICIAN consultation for further evaluation. [facility] CITYJ-[id number] Interface, Radiology Results 06/28/2020 4:35 PM CDT EXAMINATION: US PELVIC TRANSVAGINALCLINICAL HISTORY: feverCOMPARISON: 06/28/2020.TECHNIQUE:Transabdominal and endovaginal sonographic images of the pelvis were obtained. Grayscale, color Doppler, and spectral waveform analysis of the ovarian vessels was performed.FINDINGS:The uterus is unremarkable. No uterine mass is seen. The uterus measures 7.1 x 4.4 x 3.7 cm.The endometrial stripe is unremarkable and measures 0.36 cm.A tubular complex cystic mass is seen within the left adnexal measuring at least 4 x 2.8 cm. This corresponds to the fibular wall enhancing structure seen on the prior CT exam. There is also a posterior 1.7 cm left ovarian cyst cyst with internal echo is seen. Findings are again worrisome for tubo-ovarian abscess/pyosalpinx. The ovaries otherwise unremarkable.The right ovary measures 2.46 cm x 2.26 cm x 2.16 cm . Normal Doppler flow was present.The left ovary measures 8.83 cm x 3.82 cm x 4.00 cm. Normal Doppler flow was present.There is nofluid in the pelvic cul-de-sac.Renal survey demonstrates no evidence of hydronephrosis.Impression:Findings again worrisome for left adnexal tubo-ovarian abscess/pyosalpinx. Recommend PREPARATORY TECHNICIAN consultation for further evaluation.[facility]J-[id number] Hospital Pelvic [id number] 21:29:04EXAMINATION: US PELVIC TRANSABDOMINAL CLINICAL HISTORY: possible pyosalpinx COMPARISON: 06/28/2020. TECHNIQUE:Transabdominal and endovaginal sonographic images of the pelvis were obtained. Grayscale, color Doppler, and spectral waveform analysis of the ovarian vessels was performed. FINDINGS: The uterus is unremarkable. No uterine mass is seen. The uterus measures 7.1 x 4.4 x 3.7 cm. The endometrial stripe is unremarkable and measures 0.36 cm. A tubular complex cystic mass is seen within the left adnexal measuring at least 4 x 2.8 cm. This corresponds to the fibular wall enhancing structure seen on the prior CT exam. There is also a posterior 1.7 cm left ovarian cyst cyst with internal echo is seen. Findings are again worrisome for tubo-ovarian abscess/pyosalpinx. The ovaries otherwise unremarkable. The right ovary measures 2.46 cm x 2.26 cm x 2.16 cm . Normal Doppler flow was present. The left ovary measures 8.83 cm x 3.82 cm x 4.00 cm. Normal Doppler flow was present. There is no fluid in the pelvic cul-de-sac. Renal survey demonstrates no evidence of hydronephrosis. Impression: Findings again worrisome for left adnexal tubo- ovarian abscess/pyosalpinx. Recommend PREPARATORY TECHNICIAN consultation for further evaluation. [facility]J-[id number] Interface, Radiology Results - 06/28/2020 4:32 PM CDT EXAMINATION: US PELVIC TRANSABDOMINALCLINICALHISTORY: possible pyosalpinxCOMPARISON: 06/28/2020.TECHNIQUE:Transabdominal and endovaginal sonographic images of the pelvis were obtained. Grayscale, color Doppler, and spectral waveform analysis of the ovarian vessels was performed.FINDINGS:The uterus is unremarkable. No uterine mass is seen. The uterus measures 7.1 x 4.4 x 3.7 cm. The endometrial stripe is unremarkable and measures 0.36 cm.A tubular complex cystic mass is seen within the left adnexal measuring at least 4 x 2.8 cm. This correspondsto the fibular wall enhancing structure seen on the prior CT exam. There is also a posterior 1.7 cm left ovarian cyst cyst with internal echo is seen. Findings are again worrisome for tubo-ovarian abscess/pyosalpinx. The ovaries otherwise unremarkable.The right ovary measures 2.46 cm x 2.26 cm x 2.16 cm . Normal Doppler flow was present.The left ovary measures 8.83 cm x 3.82 cm x 4.00 cm. Normal Doppler flow was present.There is no fluid in the pelvic cul-de-sac.Renal survey demonstrates no evidenceof hydronephrosis.Impression:Findings again worrisome for left adnexal tubo-ovarian abscess/pyosalpinx. Recommend PREPARATORY TECHNICIAN consultation for further evaluation.[id number] HospitalKY Abdomen Pelvis W Contrast 2020-06-28 19:19:39EXAMINATION: CT ABDOMEN PELVIS W CONTRAST HISTORY: abd pain TECHNIQUE: CT examination of the abdomenand pelvis was performed following intravenous administration of iodinated contrast. Sagittal and coronal computerized reformatted images were obtained. CT imaging was performed with iterative reconstruction techniques and/or automated exposure control to reduce radiation dose. COMPARISON: None relevant.1 FINDINGS: Lower Thorax: The lung bases are free of acute disease. Liver: Normal size and contour, without discrete lesion. Gallbladder/Biliary: Hyperdensity along the gallbladder fundus indeterminate for adenomyomatosis versus polyp (48; 300B/14). No gallbladder wall thickening or inflammatory stranding. No intra or extrahepatic biliary ductal dilatation. Spleen: Unremarkable. Pancreas: Anterior prominence of the uncinate process, without discrete pancreatic mass or main ductal dilatation. Adrenal: Unremarkable. Kidneys: Symmetric. Extrarenal pelves bilaterally, without definitive hydronephrosis. No discrete mass. No renal or ureteral stone. Urogenital: Urinary bladder is unremarkable. Heterogeneously enhancing uterus, nonspecific. Both ovaries featuring numerous numerous follicles. Severe left hydrosalpinx, with hyperenhancement of the septated appearance of the fallopian tube, most distended area measuring 5.6 x 3.7 x 4.3 cm (2/96). Edematous appearance of the vaginal bruce. Bowel: Bowel within normal limits of appearance. Vascular: Greater abdominal vasculature is unremarkable. No abdo adrienne aortic aneurysm. Lymph Nodes: No lymphadenopathy. Peritoneal/Other: None. Musculoskeletal: No suspicious osseous lesions. IMPRESSION: 1.Severe left hydrosalpinx with tubal hyperenhancement and edematous appearance throughout the vagina. Findings suspicious for PID, possible pyosalpinx. Recommendcorrelation with pelvic ultrasound. 2.Hyperenhancement within the gallbladder fundus may represent adenomyomatosis or gallbladder polyp. Recommend further evaluation by gallbladder ultrasound on nonurgent basis. [id number] Interface, Radiology Results Incoming - 06/28/2020 2:22 PM CDTFormatting ofthis note might be different from the original.EXAMINATION: CT ABDOMEN PELVIS W CONTRASTHISTORY: abdpainTECHNIQUE: CT examination of the abdomen and pelvis was performed following intravenous administration of iodinated contrast. Sagittal and coronal computerized reformatted images were obtained. CT imaging was performed with iterative reconstruction techniques and/or automated exposure control to reduce radiation dose.COMPARISON: None relevant.1FINDINGS:Lower Thorax: The lung bases are free of acute disease.Liver: Normal size and contour, without discrete lesion.Gallbladder/Biliary: Hyperdensity along the gallbladder fundus indeterminate for adenomyomatosis versus polyp (2/48; 300B/14). No gallbladder wall thickening or inflammatory stranding. No intra or extrahepatic biliary ductal dilatation.Spleen: Unremarkable.Pancreas: Anterior prominence of the uncinate process, without discrete pancreatic mass or main ductal dilatation.Adrenal: Unremarkable.Kidneys: Symmetric. Extrarenal pelves bilatera lly, without definitive hydronephrosis. No discrete mass. No renal or ureteral stone.Urogenital: Urinary bladder is unremarkable. Heterogeneously enhancing uterus, nonspecific. Both ovaries featuring numerous numerous follicles. Severe left hydrosalpinx, with hyperenhancement of the septated appearance of the fallopian tube, most distended area measuring 5.6 x 3.7 x 4.3 cm (2/96). Edematous appearance of the vaginal bruce.Bowel: Bowel within normal limits of appearance.Vascular: Greater abdominal vasculature is unremarkable. No abdominal aortic aneurysm.Lymph Nodes: No lymphadenopathy.Peritoneal/Other: None.Musculoskeletal: No suspicious osseous lesions. IMPRESSION:1.Severe left hydrosalpinx with tubal hyperenhancement and edematous appearance throughout the vagina. Findings suspicious for PID, possible pyosalpinx. Recommend correlation with pelvic ultrasound.2.Hyperenhancement within the gallbladder fundus may represent adenomyomatosis or gallbladder polyp. Recommend further evaluation by gallbladder ultrasound on nonurgent basis.[id number] Notes Date/Time Note Provider Source 2021-06-13 21:43:00-00:[facility] EMERGENCY PROVIDER REPORT REPORT#:[id number] REPORT STATUS: Signed DATE:06/13/21 TIME: 2142 PATIENT: DONOVAN GARRISON UNIT #: [id number] ROOM/BED: AGE: 31 SEX: F PCP PHYS: No Primary or Family Ph ysician SERVICE AUTHOR: Donnie Amanda MD * ALL edits or amendments must be made on the [facility]/computer document * HPI-Foot Prob/Inj General Initial Greet Date/Time 06/13/212142 Presentation Chief Complaint Foot pain L Free Text HPI Notes Free Text HPI Notes This morning she stepped down from her b ed and "stepped wrong" on Saturday left foot. She says that she is c omplaining of pain at the medial aspect of the foot along the first metatarsal bone. There is no def ormity but she does have some tenderness of the distal part of that. Pain is w orse with weightbearing and movement better with rest and elevation. Risk fa ctors are none. No break in the skin. Review of Systems Basic Review of Systems Basic ROS EYES: No redness, ENT: No sore throat, RESP: No SOB, CV: No chest pain , GI: No abd pain/vomiting, : No dysuria/frequency, HEM: No bleeding/bruising, PSYCH: NL thought content Focused Review of Systems Musculoskeletal Reports: Extremity pain. Past Medical History - Adult Stated Complaint I HURT MY LEFT FOOT Allergies Coded Allergies: latex (Severe, SWELL UP 06/13/21) Home Medications Reported Medications IBUPROFEN (MOTRIN) 800 MG PO TID Pt reports no significant: Past medical history, Past surgical history Physical Exam Vital Signs Vital Signs First Documented: Result Date Time Pulse Ox 99 06/132 B/P 130/61 06/13 214 B/P Mean 84 06/13 2142 O2 Delivery Room air 06/13 2142 Temp 36.9 06/13 2142 Pulse 73 06/13 2142 Resp 06/13 Last Documented: Result Date Time Pulse Ox 99 06/13 214 B/P 130/61 06/13 2142 B/P Mean 84 06/13 2142 O2 Delivery Room air 06/13 2142 Temp 36.9 06/13 2142 Pulse 73 06/13 2142 Resp 06/13 Review of Vital Signs Reviewed Basic Physical Exam Basic PE GEN: Well appearing /NAD, HEAD: Atraumatic/NC, EYES: PERRL, conj clear, ENT: Membranes moist, NECK: Supple, RESP: No res p distress, CV: Reg rate rhythm, ABD: Soft/non-tender , UP EXT: No gross abnormal, SKIN: No rashes, warm/ dry, NEURO: alert oriented, NEURO: gross movemen t NL, PSYCH: NL thought content Interpretation Diagnostics Lab Results Interpretation Results Recent Impressions: RADIOLOGY - XR ANKLE 3 + V LT 06/13 2219 Report Impression - Status: SIGNED Entered: 06/13/20212242 IMPRESSION: No fracture or dislocation Impression By: Eula Dawn M.D. RADIOLOGY - XR FOOT 3 + V LT 06/13 2219 Report Impression - Status: SIGNED Entered: 06/13/20212243 IMPRESSION: No fracture or dislocation Impression By: Eula Dawn M.D. Re-Evaluation MDM ED Course Medication(s) Ordered Medication(s) Ordered: Central Nervous System Agents Sig/Jairo Start time Last Medication Dose Route Stop Time Status Admin Ketorolac 60 MG X1ED STA 06/13 2227 DC Tromethamine IM 06/13 2228 Patient Discharge Departure Vital Signs/Condition Vital Signs First Documented: Result Date Time Pulse Ox 99 06/13 2142 B/P 130/61 06/13 2142 B/P Mean 84 06/13 2142 O2 Delivery Room air 06/13 2142 Temp 36.9 06/13 2142 Pulse 73 06/13 2142 Resp 06/13 Last Documented: Result Date Time Pulse Ox 99 06/13 2142 B/P 130/61 06/13 2142 B/P Mean 84 06/13 2142 O2 Delivery Room air 06/13 2142 Temp 36.9 06/13 2142 Pulse 73 06/13 2142 Resp 06/13 All vital signs available at the time of this en try have been reviewed. Clinical Impression Clinical Impression Primary Impression: Foot sprain Disposition Decision Discharge )( Discharged to Home Yes )( Time 225 )( Date 06/13/21 Discharge/Care Plan (Auto) Prescriptions Current Visit Scripts IBUPROFEN (MOTRIN) 800 MG PO TID PRN PRN PAIN IBUPROFEN (MOTRIN) 800 MG PO TID PRN PRN PAIN # 30 TABS Discharge Note I have spoken with the patie nt and/or caregivers. I have explained the patient's condition, diagnoses and karen atment plan based on the information available to me at this time. I have answered the patient's and/ or caregiver's questions and addressed any concerns. The patient and/or careg ana have as good an understanding of the patient 's diagnosis, condition and treatment plan as can be expected at this point. The vital signs have bee n stable. The patient's condition is stable and appr opriate for discharge from the emergency department. The patient will pursue further outpatient evalu ation with the primary care physician or other designated or consulting phys ician as outlined in the discharge instructions. The patient and/or caregivers are agreeable to this plan of care and follow-up instructions have been exp lained in detail. The patient and/or caregivers have received these instructio ns in written format and have expressed an understanding of the discharge inst ructions. The patient and/or caregivers are aware that any significant change in condition or worsening of symptoms should prompt an immediate return to [facility] or the closest emergency department or a call to 911. Electronically Signed by Donnie Amanda MD on 0 06/13/21 at 2256 RPT #:[id number] END OF REPORT
[2023-02-25 23:10] LABS: Specific Gravity < 1.005 (1.005-1.030); Urine Bilirubin NEGATIVE (Negative); Urine Blood Negative (Negative); Urine Clarity Clear (Clear); Urine Color Colorless (Yellow); Urine Glucose NEGATIVE (Negative); Urine Protein NEGATIVE (Negative); Urine Urobilinogen Normal (Normal); Urine pH 7.5 (5.0-7.0)
[2023-02-25] MEDS ORDERED: NA CHLORIDE 0.9% 500 ML ONE (23:20)
[2023-02-25] MEDS ORDERED: ACETAMINOPHEN 500 MG TAB ONE (23:20)
[2023-02-25 23:24] LABS: Specific Gravity 1.005 (1.005-1.030)
[2023-02-25 23:43] LABS: Absolute Lymphocytes (CBC) 1.5 K/uL (0.7-4.9); Hematocrit 37.4 % (36.0-45.0); Lymphocytes % 15.7 % (15.3-44.8); MCV 95.5 fL (80-100); MPV 8.1 fL (7.6-11.3); RBC Red Blood Cell Count 3.92 M/uL (3.86-4.86)
[2023-02-25 23:58] LABS: Potassium 3.6 mEq/L (3.5-5.1)
--- NOTE | 2023-02-26 00:34 | ER ---
Nurse's Notes [facility] Name: Jessica Hernandez Age: 32 yrs Sex: Female : 1990 Arrival Date: 02/25/2023 Time: 21:21 Bed IW1 Private MD: Diagnosis: related conditions, unspecified, second trimester Presentation: 02/25 22:34 Chief complaint: Patient states: We just found out i was yesterday and i have kd3 some pain on my left side in my lower abdomen. I am not spotting or bleeding. My last couple of 's were rough. Coronavirus screen: Vaccine status: Patient reports being unvaccinated. Ebola Screen: No symptoms or risks identified at this time. Initial Sepsis Screen: Does the patient meet any 2 criteria? No. Patient's initial sepsis screen is negative. Does the patient have a suspected source of infection? No. Patient's initial sepsis screen is negative. Risk Assessment: Do you want to hurt yourself or someone else? Patient reports no desire to harm self or others. Onset of symptoms was February 25, 2023. 22:34 Method Of Arrival: Ambulatory kd3 22:34 Acuity: SHAYAN 3 kd3 Triage Assessment: 22:36 General: Appears in no apparent distress. Behavior is calm, cooperative. Pain: kd3 Complains of pain in left lower quadrant. GI: Reports nausea. 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 - Social history:: Smoking status: Patient reports the use of cigarette tobacco products. Screenin/30 00:40 [facility] ED Fall Risk Assessment (Adult) History of falling in the last 3 months, kd3 including since admission No falls in past 3 months (0 pts) Confusion or Disorientation No (0 pts) Intoxicated or Sedated No (0 pts) Impaired Gait No (0 pts) Mobility Assist Device Used No (0 pt) Altered Elimination No (0 pt) Score/Fall Risk Level 0 - 2 = Low Risk Maintained a safe environment. Abuse screen: Denies threats or abuse. Denies injuries from another. Nutritional screening: No deficits noted. Tuberculosis screening: No symptoms or risk factors identified. Assessment: 00:40 GI: Bowel sounds present X 4 quads. Abd is soft X 4 quads. kd3 Vital Signs: 02/25 22:34 BP 107 / 64; Pulse 93; Resp 16; Temp 98.6(O); Pulse Ox 100% ; Weight 44.45 kg; Height 4 kd3 ft. 6 in. ; 02/26 00:41 BP 108 / 72; Pulse 94; Resp 17; Pulse Ox 100% ; kd3 02/25 22:34 Body Mass Index 22.78 (44.45 kg, 139.7 cm) kd3 ED Course: 02/25 21:28 Patient arrived in ED. ja2 21:50 Sathya Godfrey PA is PHCP. cp 21:50 Norm Cooper MD is Attending Physician. cp 22:36 Triage completed. kd3 22:36 Arm band placed on left wrist. kd3 22:58 Inserted saline lock: 20 gauge in left antecubital area, using aseptic technique. Blood ah1 collected. 22:59 Abo/rh Typing Sent. ah1 22:59 Basic Metabolic Panel Sent. ah1 22:59 CBC with Diff Sent. ah1 22:59 Test, Urine Sent. ah1 22:59 Quantitative Hcg Sent. ah1 22:59 Urinalysis w/ reflexes Sent. ah1 23:31 US Transvaginal Ob In Process Unspecified. EDMS 02/26 00:40 Patient has correct armband on for positive identification. kd3 00:40 No provider procedures requiring assistance completed. IV discontinued, intact, kd3 bleeding controlled, No redness/swelling at site. Pressure dressing applied. Administered Medications: 02/25 23:34 Drug: Acetaminophen PO 500 mg Route: PO; kd3 02/26 00:41 Follow up: Response: No adverse reaction kd3 02/25 23:34 Drug: NS 0.9% IV 500 ml Route: IV; Rate: calculated rate; Site: left antecubital; kd3 02/26 00:41 Follow up: IV Status: Completed infusion; IV Intake: 500ml kd3 Medication: 00:41 VIS not applicable for this client. kd3 Intake: 00:41 IV: 500ml; Total: 500ml. kd3 Outcome: 00:34 Discharge ordered by . cp 00:40 Discharged to home ambulatory. kd3 00:40 Condition: stable 00:40 Discharge instructions given to patient, Instructed on discharge instructions, follow up and referral plans. Demonstrated understanding of instructions, follow-up care. 00:41 Patient left the ED. kd3 Signatures: Dispatcher [employer] EDMS Sathya Godfrey PA PA cp Alexander, Jessica ja2 Doucette, Kyli, RN RN kd3 Nessa Bojorquez
--- NOTE | 2023-02-26 00:34 | EDPHYS ---
Physician Documentation [facility] Name: Jessica Hernandez Age: 32 yrs Sex: Female : 1990 Arrival Date: 02/25/2023 Time: 21:21 Bed IW1 Private MD: ED Physician Norm Cooper HPI: 02/25 22:45 This 32 yrs old Female presents to ER via Ambulatory with complaints of Abdominal Pain. cp 22:45 The patient presents with abdominal pain in the left lower quadrant. cp 22:45 Onset: The symptoms/episode began/occurred today. cp 22:45 The symptoms do not radiate. Associated signs and symptoms: Pertinent negatives: cp constipation, diarrhea, dysuria, fever, hematuria, vaginal discharge, vaginal bleeding. The symptoms are described as achy. Severity of pain: in the emergency department the pain is unchanged despite home interventions. Patient reports she recently took home test that was positive. LMP was November 2022. She believes she is about 12 weeks along with this . No care. 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 - Social history:: Smoking status: Patient reports the use of cigarette tobacco products. ROS: 22:50 Constitutional: Negative for body aches, chills, fever, poor PO intake. cp 22:50 Eyes: Negative for injury, pain, redness, and discharge. cp 22:50 Neck: Negative for pain with movement, pain at rest, stiffness. 22:50 Respiratory: Negative for cough, shortness of breath, wheezing. 22:50 Abdomen/GI: Positive for abdominal pain, Negative for nausea and vomiting, diarrhea, constipation, anorexia. 22:50 Back: Negative for pain at rest, pain with movement. 22:50 : Negative for urinary symptoms, hematuria, vaginal bleeding, vaginal discharge. 22:50 All other systems are negative. Exam: 22:55 Constitutional: The patient appears in no acute distress, alert, awake, non-toxic, well cp developed, well nourished, uncomfortable. 22:55 Head/Face: Normocephalic, atraumatic. cp 22:55 Eyes: Periorbital structures: appear normal, Conjunctiva: normal, no exudate, no injection, Lids and lashes: appear normal, bilaterally. 22:55 ENT: External ear(s): are unremarkable, Nose: is normal, Mouth: Lips: moist, Oral mucosa: pink and intact, moist, Posterior pharynx: is normal, airway is patent, no erythema, no exudate. 22:55 Chest/axilla: Inspection: normal. 22:55 Cardiovascular: Rate: normal. 22:55 Respiratory: the patient does not display signs of respiratory distress, Respirations: normal, no use of accessory muscles, no retractions, labored breathing, is not present, Breath sounds: are clear throughout, no decreased breath sounds, no stridor, no wheezing. 22:55 Abdomen/GI: Inspection: gravid appearance, is noted, Bowel sounds: active, all quadrants, Palpation: soft, in all quadrants, mild abdominal tenderness, in the suprapubic area and left lower quadrant, rebound tenderness, is not appreciated, involuntary guarding, is not appreciated. 22:55 Back: CVA tenderness, is absent. Vital Signs: 22:34 BP 107 / 64; Pulse 93; Resp 16; Temp 98.6(O); Pulse Ox 100% ; Weight 44.45 kg; Height 4 kd3 ft. 6 in. ; 02/26 00:41 BP 108 / 72; Pulse 94; Resp 17; Pulse Ox 100% ; kd3 02/25 22:34 Body Mass Index 22.78 (44.45 kg, 139.7 cm) kd3 MDM: 02/25 22:39 Patient medically screened. cp 23:00 Differential diagnosis: appendicitis, non-specific abd pain, Ovarian Torsion, cp Peritonitis, Pelvic Inflammatory Disease, Pyelonephritis, Tubal Ovarian Abcess, Ureterolithiasis, urinary tract infection. 02/26 00:33 Data reviewed: vital signs, nurses notes, lab test result(s), radiologic studies, cp ultrasound. 00:33 Consideration of Admission/Observation Escalation of care including cp admission/observation considered. I considered the following discharge prescriptions or medication management in the emergency department Medications were administered in the Emergency Department. See MAR. Counseling: I had a detailed discussion with the patient and/or guardian regarding: the historical points, exam findings, and any diagnostic results supporting the discharge/admit diagnosis, lab results, radiology results, the need for outpatient follow up, for definitive care, an OB/Gyne specialist, to return to the emergency department if symptoms worsen or persist or if there are any questions or concerns that arise at home. Response to treatment: the patient's symptoms have markedly improved after treatment, and as a result, I will discharge patient. 02/25 22:38 Order name: Abo/rh Typing; Complete Time: 00:27 cp 02/26 00:28 Interpretation: Reviewed. 02/25 22:38 Order name: Basic Metabolic Panel; Complete Time: 00:14 cp 02/26 00:14 Interpretation: Normal except: NA 133; BUN 5; CRE 0.49. 02/25 22:38 Order name: CBC with Diff; Complete Time: 00:14 cp 02/26 00:15 Interpretation: Normal except: MITCH% 76.0. 02/25 22:38 Order name: Test, Urine; Complete Time: 23:26 cp 02/25 23:26 Interpretation: URINE PREG POS; Reviewed. 02/25 22:38 Order name: Quantitative Hcg; Complete Time: 00:14 cp 02/26 00:15 Interpretation: Reviewed. 02/25 22:38 Order name: Urinalysis w/ reflexes; Complete Time: 23:26 cp 02/25 23:26 Interpretation: Normal except: Urine SG < 1.005; UPH 7.5. 02/25 22:38 Order name: US Transvaginal Ob 02/25 22:38 Order name: IV Saline Lock; Complete Time: 22:59 cp 02/25 22:38 Order name: Labs collected and sent; Complete Time: 22:59 02/25 22:38 Order name: NPO; Complete Time: 23:20 cp Administered Medications: 02/25 23:34 Drug: Acetaminophen PO 500 mg Route: PO; kd3 02/26 00:41 Follow up: Response: No adverse reaction kd3 02/25 23:34 Drug: NS 0.9% IV 500 ml Route: IV; Rate: calculated rate; Site: left antecubital; kd3 02/26 00:41 Follow up: IV Status: Completed infusion; IV Intake: 500ml kd3 Disposition: 04:26 Co-signature as Attending Physician, Norm Cooper MD I agree with the assessment sp4 and plan of care. I reviewed the patient's care provided by the Advanced Practice Provider and agree with the diagnosis and treatment plan. Disposition Summary: 02/26/23 00:34 Discharge Ordered Location: Home cp Problem: new cp Symptoms: have improved cp Condition: Stable cp Diagnosis - related conditions, unspecified, second trimester cp Followup: cp - With: Private Physician - When: 1 week - Reason: Recheck today's complaints Discharge Instructions: - Discharge Summary Sheet cp - Abdominal Pain During cp - Care cp - Second Trimester of cp - Ultrasound cp Forms: - Medication Reconciliation Form cp - Thank You Letter cp - Antibiotic Education cp - Prescription Opioid Use cp Prescriptions: - [id number] - take 1 tablet by ORAL route once daily; 30 tablet; Refills: 0, Product cp Selection Permitted Signatures: Dispatcher [employer] EDMS Sathya Godfrey PA PA cp Doucette, Kyli RN RN kd3 Norm Cooper MD MD sp4
[2023-02-26 01:12] VITALS: TEMP 98.6; O2SAT 100
[2023-02-26 01:15] VITALS: BP 108/72
--- NOTE | 2023-02-26 14:24 | RAD REPORT ---
EXAM DESCRIPTION: US - Transvaginal OB - 02/25/2023 11:27 pm CLINICAL HISTORY: ABD PAIN TECHNIQUE: Real-time limited ultrasound of the maternal uterus with image documentation. COMPARISON: No relevant prior studies available. FINDINGS: Fetus: Single intrauterine gestation. AC: 12.12 cm, 17 weeks 5 days. HL: 2.48 cm, 17 weeks 5 days. Heart rate: cardiac activity measures 151 BPM. Placenta: The placenta is anterior in location. No previa. Cervix: The cervix measures 2.8 cm in length. The internal os is closed. IMPRESSION: 1. Single live intrauterine gestation. No focal complication. 2. Estimated gestational age by ultrasound is 17 weeks 5 days. 3. Estimated due date by ultrasound is 07/31/2023. Electronically signed by: Tracey Pina MD 02/26/2023 1:15 AM CDT Due to temporary technical issues with the PACS/Fluency reporting system, reports are being signed by the in house radiologists without review as a courtesy to insure prompt reporting. The interpreting radiologist is fully responsible for the content of the report.
== END 2023-02-26 00:41 | disposition home or self-care (01) ==
LOC: ER 21:21
DX: O26.892 Other specified pregnancy related conditions, second trimester (principal); Z3A.17 17 weeks gestation of pregnancy; Z91.040 Latex allergy status; Z91.048 Other nonmedicinal substance allergy status; Z72.0 Tobacco use
CPT/HCPCS: 85025; 80048; 36415; 86900; 81025; 86901; 84702; 81003; 76817; 96360; 99284; J7040

== ENCOUNTER 2024-09-15 07:22 | Emergency (ER) | payer OTHER, SELFPAY ==
[2024-09-15] MEDS ORDERED: ACETAMINOPHEN 500 MG TAB ONE (07:52)
[2024-09-15 08:12] LABS: SARS-CoV-2 Antigen CONTROL BLUE LINE VIS/BG OK; SARS-CoV-2 Antigen Rapid Res Negative (Negative)
--- NOTE | 2024-09-15 08:44 | EDPHYS ---
Physician Documentation [facility] Name: Jessica Hernandez Age: 34 yrs Sex: Female : 1990 Arrival Date: 09/15/2024 Time: 07:22 Bed 18 Private MD: ED Physician Pascual Reyes HPI: 09/15 17:41 This 34 yrs old Female presents to ER via Ambulatory with complaints of Chest Pressure ms3 - with fever x2days. 17:41 Jessica Ivey is a 34-year-old female with no pmh who presents to the Emergency ms3 Department with a two-day history of symptoms. She reports having a fever, a severe cough with expectoration of green mucus, and chills. She has not had an appetite but reports not having nausea, vomiting, or diarrhea. Her discomfort level is rated at 8 to 9 out of 10, especially with coughing, which also causes difficulty breathing. Jessica notes that her and child recently had a similar illness and are currently recovering, and she believes she contracted the illness from them.. 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 - Infectious Disease History:: Denies. - Social history:: Smoking status: unknown. ROS: 17:41 Cardiovascular: Negative for chest pain, and palpitations. MS/Extremity: Negative for ms3 injury and deformity, Skin: Negative for injury, rash, and discoloration, 17:41 Constitutional: Positive for body aches, chills, 17:41 ENT: Positive for sinus congestion, 17:41 Respiratory: Positive for cough, Exam: 17:41 Constitutional: This is a well developed, well nourished patient who is awake, alert, ms3 and in no acute distress. Head/Face: Normocephalic, atraumatic. Chest/axilla: Normal chest wall appearance and motion. Nontender with no deformity. Cardiovascular: Regular rate and rhythm with a normal S1 and S2. No gallops, murmurs, or rubs. Normal PMI, no JVD. No pulse deficits. Respiratory: Lungs have equal breath sounds bilaterally, clear to auscultation and percussion. No rales, rhonchi or wheezes noted. No increased work of breathing, no retractions or nasal flaring. Abdomen/GI: Soft, non-tender, with normal bowel sounds. No distension or tympany. No guarding or rebound. No evidence of tenderness throughout. Skin: Warm, dry with normal turgor. Normal color with no rashes, no lesions, and no evidence of cellulitis. MS/ Extremity: Pulses equal, no cyanosis. Neurovascular intact. Full, normal range of motion. Vital Signs: 07:36 BP 131 / 78; Pulse 106; Resp 16; Temp 99.9(O); Pulse Ox 98% on R/A; Weight 48.53 kg; ss Height 4 ft. 6 in. ; Pain 7/10; 08:53 BP 110 / 61; Pulse 91; Resp 17; Pulse Ox 100% on R/A; ap3 07:36 Body Mass Index 24.87 (48.53 kg, 139.7 cm) ss 07:36 Pain Scale: Adult ss MDM: 07:52 Medical Screening Exam initiated ms3 17:41 Differential diagnosis: Flu vs COVID vs Viral illness. Data reviewed: vital signs, ms3 nurses notes, lab test result(s), and as a result, I will discharge patient. I considered the following discharge prescriptions or medication management in the emergency department Medications were administered in the Emergency Department. See MAR. Counseling: I had a detailed discussion with the patient and/or guardian regarding the historical points, exam findings, and any diagnostic results supporting the discharge/admit diagnosis, lab results, the need for outpatient follow up, to return to the emergency department if symptoms worsen or persist or if there are any questions or concerns that arise at home. Response to treatment: the patient's symptoms have mildly improved after treatment. Special discussion: I discussed with the patient/guardian in detail that at this point there is no indication for admission to the hospital. It is understood, however, that if the symptoms persist or worsen the patient needs to return immediately for re-evaluation. ED course: Discussed negative flu and COVID with patient. Patient to follow-up with primary care physician in 2 to 3 days. Patient understands agrees with plan. All questions were answered. Return precautions discussed include worsening symptoms, or any other concerns. On reevaluation patient is alert and oriented x 4, in no apparent distress, nontoxic-appearing, speaking full sentences, ambulatory in the emergency department.. 09/15 07:36 Order name: SARS RAPID; Complete Time: 08:24 ss 09/15 07:36 Order name: Flu; Complete Time: 08:24 ss Administered Medications: 08:01 Drug: Acetaminophen PO 1000 mg PO once Route: PO; ap3 08:53 Follow up: Response: No adverse reaction; Pain is decreased ap3 Disposition Summary: 09/15/24 08:44 Discharge Ordered Notes: Location: Home ms3 Condition: Stable ms3 Diagnosis - Acute upper respiratory infection, unspecified ms3 - Fever, unspecified ms3 Followup: ms3 - With: Masood Camp DO - When: 2 - 3 days - Reason: Recheck today's complaints Discharge Instructions: - Discharge Summary Sheet ms3 - Upper Respiratory Infection, Adult ms3 Forms: - Medication Reconciliation Form ms3 - Antibiotic Education ms3 - Prescription Opioid Use ms3 - Patient Portal Instructions ms3 - Leadership Thank You Letter ms3 Prescriptions: - Claritin 10 mg Oral Tablet - take 1 tablet ORAL route once daily As needed; 30 tablet; Refills: 0, Product ms3 Selection Permitted Signatures: Dispatcher [employer] Claribel Hernández RN RN ss Janet Singh RN RN ap3 Pascual Reyes DO DO ms3
--- NOTE | 2024-09-15 08:44 | ER ---
Nurse's Notes [facility] Name: Jessica Hernandez Age: 34 yrs Sex: Female : 1990 Arrival Date: 09/15/2024 Time: 07:22 Bed 18 Private MD: Diagnosis: Acute upper respiratory infection, unspecified;Fever, unspecified Presentation: 09/15 07:36 Chief complaint: Patient states: fever, cough and body aches x 2 days. Family is ss getting over similar symptoms. Coronavirus screen: Client denies travel out of the [place] in the last 14 days. Ebola Screen: Patient denies exposure to infectious person. Patient denies travel to an Ebola-affected area in the 21 days before illness onset. Initial Sepsis Screen: Does the patient meet any 2 criteria? No. Patient's initial sepsis screen is negative. Does the patient have a suspected source of infection? No. Patient's initial sepsis screen is negative. Risk Assessment: Do you want to hurt yourself or someone else? Patient reports no desire to harm self or others. Onset of symptoms was September 13, 2024. 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 - Infectious Disease History:: Denies. - Social history:: Smoking status: unknown. Screenin:52 [facility] ED Fall Risk Assessment (Adult) History of falling in the last 3 months, ap3 including since admission No falls in past 3 months (0 pts) Confusion or Disorientation No (0 pts) Intoxicated or Sedated No (0 pts) Impaired Gait No (0 pts) Mobility Assist Device Used No (0 pt) Altered Elimination No (0 pt) Score/Fall Risk Level 0 - 2 = Low Risk Oriented to surroundings, Maintained a safe environment, Educated pt \T\ family on fall prevention, incl call for assistance when getting out of bed, Assessed \T\ reinforced patient's understanding of fall precautions, Hourly rounding (assess needs \T\ fall precautionary measures) done, Used ambulatory aids as needed (educated on \T\ assisted with), Used gait belt as appropriate. Abuse screen: Denies threats or abuse. Nutritional screening: No deficits noted. Tuberculosis screening: No symptoms or risk factors identified. Assessment: 07:52 General: Appears ill, Behavior is calm, cooperative, appropriate for age, Reports ap3 chills for fever for feeling ill for. Pain: Complains of pain in generalized body aches Pain does not radiate. Pain began gradually, 2-3 days ago. Neuro: Level of Consciousness is awake, alert, obeys commands, Oriented to person, place, time, situation. Cardiovascular: Patient's skin is warm and dry. Respiratory: Reports cough that is Airway is patent Respiratory effort is even, unlabored, Respiratory pattern is regular, symmetrical. EENT: Reports nasal congestion. Vital Signs: 07:36 BP 131 / 78; Pulse 106; Resp 16; Temp 99.9(O); Pulse Ox 98% on R/A; Weight 48.53 kg; ss Height 4 ft. 6 in. ; Pain 7/10; 08:53 BP 110 / 61; Pulse 91; Resp 17; Pulse Ox 100% on R/A; ap3 07:36 Body Mass Index 24.87 (48.53 kg, 139.7 cm) ss 07:36 Pain Scale: Adult ss ED Course: 07:25 Patient arrived in ED. ra3 07:36 Pascual Reyes DO is Attending Physician. ms3 07:38 Janet Singh, RN is Primary Nurse. ap3 07:39 Triage completed. ss 07:39 Arm band placed on right wrist. ss 07:53 Patient has correct armband on for positive identification. Bed in low position. Call ap3 light in reach. Provided Education on: call light education. Pulse ox on. NIBP on. 07:53 No provider procedures requiring assistance completed. Patient maintains SpO2 ap3 saturation greater than 95% on room air. 08:44 Masood Camp DO is Referral Physician. ms3 08:53 Patient did not have IV access during this emergency room visit. ap3 Administered Medications: 08:01 Drug: Acetaminophen PO 1000 mg PO once Route: PO; ap3 08:53 Follow up: Response: No adverse reaction; Pain is decreased ap3 Medication: 07:53 VIS not applicable for this client. ap3 Outcome: 08:44 Discharge ordered by . ms3 08:53 Discharged to home ambulatory, with family, ap3 08:53 Condition: good 08:53 Discharge instructions given to patient, Instructed on discharge instructions, follow up and referral plans. medication usage, Demonstrated understanding of instructions, follow-up care, medications, Prescriptions given X 1 08:54 Patient left the ED. ap3 Signatures: Claribel Da Silva RN RN Janet Singh RN RN ap3 Pascual Reyes DO DO ms3 Clara Escobar ra3
[2024-09-15 09:06] VITALS: TEMP 99.9
[2024-09-15 09:07] VITALS: BP 110/61; O2SAT 100
== END 2024-09-15 08:54 | disposition home or self-care (01) ==
LOC: ER 07:22
DX: J06.9 Acute upper respiratory infection, unspecified (principal); Z11.52 Encounter for screening for COVID-19
CPT/HCPCS: 36415; 87804; 87811; 99283